=== PATIENT | female | born 1985 | race Caucasian/White ===

== ENCOUNTER 2022-05-30 18:01 | Emergency (ER) | payer MEDICARE, MEDICAID, SELFPAY ==
[2022-05-30 18:10] VITALS: BP 103/70; PULSE 83; RESP 18; TEMP 36.7; O2SAT 98
--- NOTE | 2022-05-30 19:35 | ED.GENADULT ---
HPI - General Adult General Chief complaint: Unspecified Stated complaint: Seizures Source: patient Mode of arrival: ambulatory Limitations: no limitations History of Present Illness HPI narrative: PATIENT PRESENTS FOR EVALUATION WITH AN INCREASED NUMBER OF SEIZURES OF LATE. SHE HAS UNDERLYING EPILEPSY. SHE STATES SHE HAS HAD 3 SEIZURES IN THE PAST FEW DAYS. SHE IS COMPLIANT WITH HER ANTIEPILEPTICS. SHE BELIEVES THE INCREASE IN SEIZURES IS RELATED TO STRESS OR PERHAPS AN ACUTE ILLNESS. HER SON RECENTLY TESTED POSITIVE FOR STREP. SHE DENIES SORE THROAT. DENIES FEVER, CHILLS, OTALGIA OF, COUGH, OTHER INFECTIOUS SYMPTOMS. SHE HAS SOME CHRONIC URINARY SYMPTOMS BUT HAS UNDERLYING INTERSTITIAL CYSTITIS. SHE RECENTLY WENT TO REHAB AND HAS BEEN CLEAN FROM [facility]PIATES FOR ABOUT 86 DAYS. SHE HAS SOME PROBLEMS WITH TRANSPORTATION FINDING PERMANENT HOUSING. SHE ALSO HAS SOME STRESS IN HER INTIMATE RELATIONSHIP BUT STATES THAT SHE AND HER BOYFRIEND ARE CURRENTLY NOT SEEING ONE ANOTHER. Related Data Home Medications Medication Instructions Recorded Confirmed buprenorphine 8 mg-naloxone 2 mg film 05/30/22 sublingual film escitalopram oxalate 20 mg tablet mg 05/30/22 folic acid 1 mg tablet 05/30/22 gabapentin 300 mg capsule mg 05/30/22 lacosamide 150 mg tablet mg 05/30/22 lacosamide 50 mg tablet (Vimpat) 50 mg PO Q12H 05/30/22 05/30/22 levothyroxine 200 mcg tablet mcg 05/30/22 omega 2-rnf-xek-fish oil 300 cap 05/30/22 mg-1,000 mg capsule (Fish Oil) pantoprazole 40 mg tablet,delayed mg PO 05/30/22 release prazosin 1 mg capsule mg 05/30/22 Allergies Allergy/AdvReac Type Severity Reaction Status Date / Time lamotrigine [From Lamictal] Allergy Unknown Verified 05/30/22 19:05 tuberculin, purified protein Allergy Unknown Verified 05/30/22 19:06 deriva diphenhydramine AdvReac Seizure Verified 05/30/22 19:04 [From Benadryl] hydroxyzine AdvReac Seizure Verified 05/30/22 19:04 Review of Systems Review of Systems: CONSTITUTIONAL: DENIES FEVER, CHILLS, OR SWEATS. EYES: DENIES VISUAL CHANGES, REDNESS, OR DISCHARGE. ENT: DENIES RHINORRHEA, CONGESTION, SORE THROAT, OR OTALGIA. CARDIOVASCULAR: DENIES CHEST PAIN, PALPITATIONS, OR EDEMA. RESPIRATORY: DENIES COUGH OR DYSPNEA. GASTROINTESTINAL: DENIES ABDOMINAL PAIN, NAUSEA, VOMITING, OR DIARRHEA. GENITOURINARY: DENIES DYSURIA OR HEMATURIA. SKIN: DENIES RASH OR ITCHING. MUSCULOSKELETAL: DENIES BACK PAIN, JOINT PAIN, OR MYALGIA. NEUROLOGIC: REPORTS RECENT SEIZURE ACTIVITY. dENIES HEADACHE, NUMBNESS, DIZZINESS, OR WEAKNESS. PSYCHIATRIC: REPORTS INCREASE IN STRESS AND ANXIETY. PMFSH Past Medical History Medical History Bipolar disorder Opiate abuse, continuous Seizure disorder Surgical History Surgical History No pertinent past surgical history Family History Family History Mother Family history non-contributory Social History Social History Substance use: former Substance use type: opiates Living arrangements: with family Gender identity (if verbalized by the patient): Female Sexual Orientation (if Verbalized by the Patient): Straight or Heterosexual Exam Narrative: GENERAL: WELL-APPEARING, WELL-NOURISHED, AND IN NO ACUTE DISTRESS. HEAD: NORMOCEPHALIC, ATRAUMATIC. EYES: PERRLA AND EOMI. ENT: NARES CLEAR, NO RHINORRHEA OR EPISTAXIS. MUCOUS MEMBRANES MOIST. OROPHARYNX WITHOUT TONSILLAR HYPERTROPHY EXUDATE OR OTHER LESIONS. BILATERAL TMS PEARLY VEGA NONBULGING NECK: SUPPLE. NO ADENOPATHY OR MASSES. NO CAROTID BRUITS OR JVD CHEST: CLEAR TO AUSCULTATION. NO RESPIRATORY DISTRESS. NO WHEEZES RALES OR RHONCHI HEART: REGULAR RATE AND RHYTHM. NO MURMUR HEARD. NORMAL PERIPHERAL PULSES. ABDOMEN: SOFT, NONTEN
== END 2022-05-30 19:35 | disposition home or self-care (01) ==
PROVIDERS: Emergency Provider Nurse Practitioner; PCP Nurse Practitioner Family
DX: G40.909 Epilepsy, unspecified, not intractable, without status epilepticus (principal); Z20.822 Contact with and (suspected) exposure to COVID-19
CPT/HCPCS: 81003; 87081; 87426; 87804; 87880; 99213; C9803; G0463

== ENCOUNTER 2025-02-18 10:14 | Outpatient (CLI) | payer MEDICARE, MEDICAID, SELFPAY ==
[2025-02-18 10:48] LABS: Hematocrit 35.2 % (37.0-47.0); Hemoglobin 11.8 g/dL (12.0-15.0); Immature Granulocyte Percent A 0.3 % (0-0.5); Lymphocytes Absolute Auto 1.32 K/mm3 (0.9-3.2); Mean Corpuscular HGB Conc 33.5 g/dl (32-36); Mean Corpuscular Hemoglobin 30.5 pg (26-34); Mean Corpuscular Volume 91.0 fl (80-100); Nucleated Red Blood Cells Absolute Auto 0.000 K/mm3 (0.0-0.012); Nucleated Red Blood Cells Perc 0.0 % (0.0-0.2); Platelet Count Result 265 k/mm3 (150-375); Red Blood Count 3.87 M/mm3 (4.2-5.4); White Blood Count 6.3 K/mm3 (4.5-10.0)
[2025-02-18 11:08] LABS: Iron 67 ug/dL (37-170)
[2025-02-18 11:09] LABS: Alanine Aminotransferase 34 U/L (6-35); Albumin Level 4.4 g/dL (3.5-5.1); Alkaline Phosphatase 59 U/L (38-126); Anion Gap 9 mmol/L (4-12); Aspartate Amino Transferase 44 U/L (14-36); Bilirubin,Total 0.5 mg/dL (0.2-1.3); Blood Urea Nitrogen 17 mg/dL (7-17); Calcium 8.9 mg/dL (8.4-10.2); Carbon Dioxide 25 mmol/L (22-30); Chloride 105 mmol/L (98-107); Cholesterol 218 mg/dL (0-200); Estimated Glomerular Filt Rate > 60; Glucose 89 mg/dL (65-110); HDL Direct 61 mg/dL; Potassium 4.2 mmol/L (3.4-5.0); Sodium 139 mmol/L (137-145); Total Protein 7.4 g/dL (6.3-8.2); Triglycerides 74 mg/dL (<150)
[2025-02-18 11:17] LABS: Percent Iron Saturation 17 % (20-50)
[2025-02-18 11:45] LABS: Thyroid Stimulating Hormone Reflex 2.680 uIU/mL (0.465-4.68)
--- OUTSIDE RECORDS SUMMARY | 2025-02-18 11:59 | XMS_ITS | Clinical Summary ---
Author Organization [facility] Care Team Providers Care Client Care Manager Name Role Phone Rosas, Bailee Lyons CHIEF OPERATOR REFORMER Unavailable [phone] No, Physician Primary Care Provider [phone] Allergies Active Allergy Reactions Criticality Noted Date Comments Lactose Diarrhea,Nausea Only,Other (See comments),Nausea & Vomiting Low 03/31/2015 gas gas Lamotrigine Rash Medium 05/21/2019 Mycobacterium Tuberculosis (Tuberculin Ppd) Seizures High 06/20/2023 Sulfamethoxazole-Trimeth oprim Other (See comments) Low 12/01/2016 Patient states it causes seizures. Tetanus-Diphtheria Toxoids-Td Other (See comments) Low 05/21/2019 Chest tightness Medications levothyroxine (SYNTHROID) 200 mcg tablet Take 1 tablet (200 mcg total) by mouth daily 05/11/19 18 Active NON FORMULARY, FOR CLINIC ADMINISTERED MEDICATIONS ONLY, (not in database) kelp Active cholecalciferol (VITAMIN D-3) 5,000 unit capsule Take 1 capsule (5,000 Units total) by mouth daily Active ascorbic acid (VITAMIN C) 1,000 mg tablet Take 1 tablet (1,000 mg total) by mouth daily Active folic acid (FOLVITE) 1 mg tabletIndication s:Folate Deficiency Take 1 tablet (1 mg total) by mouth daily 100 tablet 03/09/19 23 Active thiamine (VITAMIN B1) 100 mg tabletIndication s:Thiamine Deficiency Take 1 tablet (100 mg total) by mouth daily 100 tablet 03/09/19 23 Active buprenorphine-na loxone (SUBOXONE) 2-0.5 mg per SL tablet Place 1 tablet under the tongue daily 4 tablet 03/08/19 23 Active escitalopram (LEXAPRO) 20 mg tablet Take 1 tablet (20 mg total) by mouth daily 30 tablet 03/08/19 23 Active carBAMazepine ER (CARBATROL) 300 mg 12 hr capsule Take 1 capsule (300 mg total) by mouth 2 (two) times a day 60 capsule 03/08/19 23 Active gabapentin (NEURONTIN) 300 mg capsule Take 1 capsule (300 mg total) by mouth 5 (five) times a day (with meals, nightly, and 2 AM) 150 capsule 03/08/19 23 Active al & mag hydroxide with simethicone-diph enhydramine-lido carol (MAGIC MOUTHWASH) suspension 1-5-7Epjlethmdpx :Acute glossitis,Sensat ion of foreign body in throat Swish and swallow 15 mL every 4 (four) hours as needed (Swish around in mouth and gargle with solution for 5 minutes then swallow.) Collaborating physician Abel Stevenson MD 240 mL 06/11/19 24 Active hydrOXYzine (ATARAX) 25 mg tablet Take 1 tablet (25 mg total) by mouth 3 (three) times a day as needed for itching Active ARIPiprazole (ABILIFY) 30 mg tablet Take 1 tablet (30 mg total) by mouth daily Active zonisamide (ZONEGRAN) 100 mg capsuleIndicatio ns:Seizure disorder, complex partial (HCC) Take 2 capsules (200 mg total) by mouth daily 60 capsule 3 02/09/20 25 Active lacosamide (VIMPAT) 200 mg tablet TAKE 1 TABLET BY MOUTH TWICE A DAY FOR 30 DAYS 60 tablet 3 02/09/20 25 Active lacosamide (VIMPAT) 150 mg tablet Take 1 tablet (150 mg total) by mouth 2 (two) times a day 60 tablet 03/08/19 23 025 Discontin ued(Alter emmie therapy) zonisamide (ZONEGRAN) 100 mg capsuleIndicatio ns:Seizure disorder, complex partial (HCC) Take 2 capsules (200 mg total) by mouth daily 60 capsule 3 12/11/19 25 025 Discontin ued(Reord er) Active Problems Problem Noted Date Diagnosed Date Memory loss 08/02/2024 Acute glossitis 06/11/2023 Sensation of foreign body in throat 06/11/2023 Opioid dependence with intoxication with complic ation 03/04/2022 Complex partial seizure 01/27/2016 Resolved Problems Problem Noted Date Diagnosed Date Resolved Date Seizure 01/23/2014 08/02/2024 Overview (06/03/2016): Seizure Encounters Date Type Department Care Team Description 02/08/2025 Orders Only [facility] [address] [place] [address] [address] [place] [address] Judah Ferris MD 01/28/2025 Telephone [facility] [address] [place] [address] [address] [place] [address] Sarah Batista MA 01/15/2025 Telephone [facility] [address] [place] [address] [address] [place] [id number] Judah Ferris MD from Last 3 Months Medical History Medical History Date Comments Epilepsy (HCC) Epilepsy Seizure disorder (HCC) Seizure d isorder Tension headache Headache, tensi on Bipolar affective disorder, current episode manic (HCC) Bipolar affective - now shu c; Comments: [facility] 01/28/2014 - Social History Tobacco Use Types Packs/Day Years Used Date Smoking Tobacco: Every Day Smokeless Tobacco: Never Alcohol Use Standard Drinks/Week Comments No 0 (1 standard drink = 0.6 oz pur e alcohol) AUDIT-C Answer Date Recorded Q1: How often do you have a drink containing alcohol? Never 03/04/2022 Q2: How many drinks containi ng alcohol do you have on a typical day when you are drinking? Patient does not drink Q3: How often do you have si x or more drinks on one occasion? Never 03/04/2022 Personal Safety Answer Date Recorded Have you ever been in or are you currently in a harmful physical or emotional relationship or is someone making you feel afraid or unsafe? Denies 06/14/2023 Comments No Sex and Gender Information Value Date Recorded Sex Assigned at Not on file Legal Sex Female 9:51 AM [employer] SCHO[employer] CUSTODIAN Gender Identity Not on file Sexual Orientation Not on file Last Filed Vital Signs Vital Sign Reading Time Taken Comments Blood Pressure 109/73 08/02/2024 10:11 AM CDT Pulse 99 08/02/2024 10:11 AM CDT Temperature 36.7 C (98 F) 06/20/2023 9:06 AM CDT Respiratory Rate 18 08/02/2024 10:11 AM CDT Oxygen Saturation 97% 08/02/2024 10:11 AM CDT Inhaled Oxygen Concentration - - Weight 92.1 kg (203 lb 0.7 oz) 09/15/2024 10:01 AM CDT Height 160 cm (5' 2.99) 09/15/2024 10:01 AM CDT Body Mass Index 35.98 09/15/2024 10:01 AM CDT Plan of Treatment Health Maintenance Due Date Last Done Comments Breast Cancer Screening-Mammogram 1984 Cervical Cancer Screening 1984 Depression Screening 1984 Hepatitis C Screening 1984 Varicella Vaccines (1 of 2 - 13+ 2-dose series) 1997 Regular Well Visit/Exam 18-64 2002 Pneumococcal vaccine <65 (1 of 2 - PCV) 08/08/2003 HPV Vaccines (1 - 3-dose SCD M series) 08/08/2011 Covid-19 Vaccine (4 - 2024-2 6 season) 2024 03/08/2021, 09/29/2020, 09/08/2020 Influenza Vaccine (#1) 2024 9, 01/24/2018, 11/25/2015, Additional history exists DTaP/Tdap/Td Vaccine (2 - Td or Tdap) 07/07/2025 07/08/2015 Hepatitis B Screening Completed 06/20/1996 Insurance MEDICARE IDPA , [place] [address] IDPA [facility] MEDIC[employer] ADVANTAGE MEDICARE IDPA MEDICARE IDPA Advance Directives For more information, please contact: [phone] * Full Code (Latest Code Status on File) Date Activated Date Inactivated Comments 03/04/2022 4:31 PM 03/08/2022 5:22 PM Care Teams Client Care Manager Relationship Specialty Start Date End Date No, Physician PCP - General 02/07/25 Bailee Rosas NP [address] [place] [id number] 02/05/20
--- OUTSIDE RECORDS SUMMARY | 2025-02-18 11:59 | XMS_ITS | Encounter Summary ---
Author Organization [facility] Address [address] [place] [address] Phone Care Team Providers Care Heavy Equipment Field Mechanic Name Role Phone Dick Zarate MD Unavailable [phone] Robe Schafer MD Primary Care Provider + Encounter Details Date Type Department Care Team (Late st Contact Info) Description 09/21/2023 Telephone [facility] [address] [place] [address] Elo Cat MD [address] [place] [address] Social History Tobacco Use Types Packs/Day Years Used Date Smoking Tobacco: Former Cigarettes 0.5 Q uit: 06/27/2021 Smokeless Tobacco: Never Alcohol Use Standard Drinks/Week Comments No 0 (1 standard drink = 0.6 oz pur e alcohol) quit drinking [facility] Utilities Answer Date Recorded In the past 12 months has [employer] electric, gas, oil, or water company threatened to shut off services in your home? Patient declined 09/20/2023 Social Connection and Isolation Panel Answer Date Recorded In a typical week, how many times do you talk on the phone with family, friends, or neighbors? Patient declined 09/20/2023 How often do you get togethe r with friends or relatives? Patient declined 09/20/2023 How often do you attend baptist or zoroastrian serv ices? Patient declined 09/20/2023 Do you belong to any clubs o r organizations such as baptist groups, unions, fraternal or athletic groups, or school groups? Patient declined 09/20/2023 How often do you attend meet ings of the clubs or organizations you belong to? Patient declined 09/20/2023 Are you , , di vorced, , never , or living with a partner? Patient declined 09/20/2023 AUDIT-C Answer Date Recorded Q1: How often do you have a drink containing alc ohol? Patient declined 09/20/2023 Q2: How many drinks containi ng alcohol do you have on a typical day when you are drinking? Patient declined 09/20/2023 Q3: How often do you have si x or more drinks on one occasion? Patient declined 09/20/2023 Overall Financial Resource Strain (CARDIA) Answe r Date Recorded How hard is it for you to pa y for the very basics like food, housing, medical care, and heating? Patient declined 09/20/2023 [facility] - Occupational Stress Questionnaire Answer Date Recorded Do you feel stress - tense, restless, nervous, or anxious, or unable to sleep at night because your mind is troubled all the time - these days? Patient declined 09/20/2023 Exercise Vital Sign Answer Date Recorde d On average, how many days pe r week do you engage in moderate to strenuous exercise (like a brisk walk)? Patient declined On average, how many minutes do you engage in exercise at this level? Patient declined 09/20/2023 Hunger Vital Sign Answer Date Recorded Within the past 12 months, y ou worried that your food would run out before you got the money to buy more. Patient declined Within the past 12 months, t he food you bought just didn't last and you didn't have money to get more. Patient declined PRAPARE - Transportation Answer Date Re corded In the past 12 months, has l ack of transportation kept you from medical appointments or from getting medications? Patient declined 09/20/2023 In the past 12 months, has l ack of transportation kept you from meetings, work, or from getting things needed for daily living? Patient declined 09/20/2023 Housing Stability Vital Sign Answer New e Recorded In the last 12 months, was t here a time when you were not able to pay the mortgage or rent on time? Patient declined 09/20/19 24 In the past 12 months, how m any times have you moved where you were living? 8 09/20/2023 At any time in the past 12 m [facility], were you homeless or living in a mcc (including now)? Patient declined 09/20/2023 Sexually Active Control Partners Comments Yes Surgical Male Comments No Sex and Gender Information Value Date Recorded Sex Assigned at Female 06/08/2023 7:14 PM CDT Legal Sex Female 10:39 PM CDT Gender Identity Female 06/08/2023 7:14 PM CDT Sexual Orientation Something else 08/23/2023 11 :01 AM CDT documented as of this encounter Functional Status documented as of this encounter Mental Status * Question Answer Entry Date Author Safety Factors bed in low position; call light in reach;ID band on;upper side rails raised x 2;wheels locked 09/21/2023 9:53 AM CDT Capri Sweeney, RN * Question Answer Entry Date Author Pain Description constant;aching;sharp 1:00 PM CDT Capri Sweeney, customs inspector Interventions care clustered;pain management plan reviewed with patient/caregiver 09/21/2023 1:00 PM CDT Capri Sweeney, RN * Question Answer Entry Date Author VTE Prevention/Management ambulation encouraged 09/21/2023 9:53 AM CDT Capri Sweeney, RN * Question Answer Entry Date Author BP 128/73 09/21/2023 11:54 AM CDT Beronica Fitzpatrick Temp 97.9 09/21/2023 11:54 AM CDT Beronica Fitzpatrick Pulse 88 09/21/2023 11:54 AM CDT Beronica Fitzpatrick * Question Answer Entry Date Author SpO2 100 09/21/2023 11:54 AM CDT Beronica Fitzpatrick O2 Device None (Room air) 09/21/2023 9:53 AM CDT Capri Mcdonald, RN * Question Answer Entry Date Author Best Eye Response 4-->(E4) spontaneous 9:53 AM CDT Capri Sweeney RN Best Verbal Response 5-->(V5) oriented 9:53 AM HELENT Capri Sweeney RN Best Motor Response 6-->(M6) obeys commands 08/29 9:53 AM Capri Burns RN Dylan Coma Scale Score 15 09/21/2023 9:53 AM CDT Capri Sweeney RN * Question Answer Entry Date Author Sensory Perception 4-->no impairment 09/21/2023 9:53 AM HELENT Capri Sweeney RN Friction and Shear 3-->no apparent problem 09/20 9:53 AM HELENT Capri Sweeney RN Moisture 4-->rarely moist 09/21/2023 9:53 AM Capri Burns RN Hi Score 22 09/21/2023 9:53 AM HELENT Capri Sweeney RN Nutrition 3-->adequate 09/21/2023 9:53 AM Capri Burns RN Activity 4-->walks frequently 09/21/2023 9:53 AM Capri Burns RN Mobility 4-->no limitation 09/21/2023 9:5 3 AM Capri Burns RN * Question Answer Entry Date Author Infection Management aseptic techniques maintained 09/21/2023 9:53 AM Capri Burns RN documented in this encounter Plan of Treatment Not on file documented as of this encounter Visit Diagnoses Diagnosis S/P cholecystectomy- Primary Other acquired absence of organ documented in this encounter Care Teams Heavy Equipment Field Mechanic Relationship Specialty Start Date End Date Robe Schafer MD [address] [facility] [address] [place] [id number] PCP - General Family Medicine 03/22/23 Dick Zarate MD Consulting Physician Neurology 03/17/15 01/15/24 documented as of this encounter
--- OUTSIDE RECORDS SUMMARY | 2025-02-18 11:59 | XMS_ITS | Patient Health Record ---
Author Organization [facility] [employer] [facility] Address [address] [facility] [address] [place] [address] Care Team Providers Care Research Archaeologist Name Role Phone Thomas Gallardo Unavailable [phone] Reason For Referral No Information Social History Sex Assigned At : Social History Observation Description Sex Assigned At Female Encounters Encounter Location Date Provider Diagnosis [facility] [employer] [facility] [address] [facility] [address] [place] [address] 08/21/2024 Thomas Gallardo Plan Of Treatment No Information Insurance Providers Payer Name Payer Address Payer Phone Subscriber Number Group Number Insured Name Patient Relationship to Insured Coverage Start Date Coverage End Date Medicare-I l Medicare [address] [place] [id number] Felisa Reed Self - patient is the insured
--- OUTSIDE RECORDS SUMMARY | 2025-02-18 11:59 | XMS_ITS | Clinical Summary ---
Author Organization [facility] Address [address] [facility] [place] [address] Phone Care Team Providers Care Director Nurses' Registry Name Role Phone Robe Schafer MD Primary Care Provider + Allergies Active Allergy Reactions Criticality Noted Date Comments Sulfamethoxazole-Trime thoprim Other (see Comments) 05/05/2017 Patient states it causes seizures. Lactose Diarrhea,Nausea,Othe r (see Comments) 03/31/2015 gas Lamotrigine Rash 05/21/2019 Tetanus-Diphtheria Toxoids Td Other (see Comments) 05/21/2019 Chest tightness Medications escitalopram (LEXAPRO) 20 MG Tablet 20 mg every morning. 0 03/07/19 16 Active carBAMazepine (CARBATROL) 300 MG CAPSULE SR 12 HR TAKE ONE CAPSULE BY MOUTH EVERY 12 HOURS 60 Cap 3 11/16/19 17 Active Additional Information Patient taking differently: 300 mg Oral 2 TIMES DAILY, Indications: Bipolar Mood Disorder, Reported on 09/20/2023 cholecalciferol 400 UNIT TabletIndications:V itamin D Deficiency Take 10,000 Units by mouth twice a week. Indications: Vitamin D Deficiency Active LORazepam (Ativan) 0.5 MG TabletIndications:A nxiety,History of seizures Take 1 Tablet by mouth daily as needed for Anxiety. 5 Tablet 11/10/19 23 Active prochlorperazine (COMPAZINE) 5 MG Tablet Take 2 Tablets by mouth every 6 hours as needed for Nausea - 1st line. 15 Tablet 09/18/19 24 Active other 4 Capsules by Other route in the morning and at bedtime. Kratom Active Aripiprazole (ABILIFY) 20 MG Tablet Take 20 mg by mouth daily. Active buprenorphine-nalox one (Suboxone) 8-2 MG FILM by Sublingual route 2 times daily. 1.5 films AM and 1 film PM Active gabapentin (NEURONTIN) 400 MG Capsule Take 400 mg by mouth 4 times daily. Active levothyroxine (SYNTHROID) 125 MCG Tablet Take 250 mcg by mouth daily. Active lacosamide (VIMPAT) 200 MG Tablet Take 200 mg by mouth 2 times daily. Active ondansetron (ZOFRAN-ODT) 4 MG TABLET DISPERSIBLE Take 1 Tablet by mouth every 6 hours as needed for Nausea - 1st line. 30 Tablet 09/21/19 24 Active HYDROcodone-acetami nophen (NORCO) 5-325 MG TabletIndications:S /P cholecystectomy Take 1 Tablet by mouth every 8 hours as needed for Moderate or more severe pain. 15 Tablet 09/21/19 24 Active Active Problems Problem Noted Date Diagnosed Date Complex partial seizure 01/27/2016 Non morbid obesity 08/11/2015 Numbness and tingling 05/07/2015 Seizures 03/31/2015 Bipolar 1 disorder 03/31/2015 Resolved Problems Problem Noted Date Diagnosed Date Resolved Date Acute cholecystitis 09/20/2023 09/21/19 Hypokalemia 09/20/2023 09/21/2023 Family History Medical History Relation Name Comments No Known Problems Brother No Known Problems Daughter Alcohol Abuse Father Colon Polyps Father Heart Disease Father No Known Problems Maternal Grandfather Emphysema Maternal Grandmother Bipolar Disorder Mother Depression Mother Hepatitis Mother Suicide Attempts Mother Colon Cancer Paternal Aunt No Known Problems Paternal Grandfather No Known Problems Paternal Grandmother Seizures Son 1 No Known Problems Son 2 Relation Name Status Comments Brother Alive Daughter Alive Father Alive Maternal Grandfather Maternal Grandmother Mother Paternal Aunt Paternal Grandfather Paternal Grandmother Alive Son 1 Alive Son 2 Alive Social History Tobacco Use Types Packs/Day Years Used Date Smoking Tobacco: Former Cigarettes 0.5 Q uit: 06/27/2021 Smokeless Tobacco: Never Alcohol Use Standard Drinks/Week Comments No 0 (1 standard drink = 0.6 oz pur e alcohol) quit drinking [facility] Utilities Answer Date Recorded In the past 12 months has e electric, gas, oil, or water company threatened [...] declined 09/20/2023 How often do you attend yazdanism or jewish serv ices? Patient declined 09/20/2023 Do you belong to any clubs o r organizations such as yazdanism groups, unions, fraternal or athletic groups, or [...] medical care, and heating? Patient declined 09/20/2023 [facility] - Occupational Stress Questionnaire Answer Date Recorded [...] any time in the past [address] [facility], were you homeless or living in a custodial (including now)? Patient declined 09/20/2023 Sexually Active Control Partners Comments Yes Surgical Male Comments No Sex and Gender Information Value Date Recorded Sex Assigned at Female 06/08/2023 7:14 PM CDT Legal Sex Female 10:39 PM CDT Gender Identity Female 06/08/2023 7:14 PM CDT Sexual Orientation Something else 08/23/2023 11 :01 AM CDT Last Filed Vital Signs Vital Sign Reading Time Taken Comments Blood Pressure 128/73 09/21/2023 11:54 AM CDT Pulse 88 09/21/2023 11:54 AM CDT Temperature 36.6 C (97.9 F) 09/21/2023 11:54 AM CDT Respiratory Rate 16 09/21/2023 11:54 AM CDT Oxygen Saturation 100% 09/21/2023 11:54 AM CDT Inhaled Oxygen Concentration - - Weight 82.7 kg (182 lb 6.4 oz) 09/20/2023 1:14 A M CDT Height 160 cm (5' 3) 09/20/2023 1:14 AM CDT Body Mass Index 32.31 09/20/2023 1:14 AM CDT Plan of Treatment Health Maintenance Due Date Last Done Comments Hepatitis C Virus (HCV) Screening 1984 Mammogram 1984 Hepatitis B Immunization (2 of 3 - 3-dose series) 07/18/1996 06/20/1996 Varicella Immunization (1 of 2 - 13+ 2-dose series) 1997 Pap Smear 2005 Medicare Initial AWV [id number] 12/29/2013 Cervical Cancer Screening (CCS) 2014 HPV/Cotest 2014 Discussion re Starting/Frequency of Mammograms 2024 Influenza Immunization (#1) 10/29/202411/29, 01/24/2018, 11/25/2015, Additional history exists SARS-COV-2 Immunization ( season) 2024 03/08/2021, 09/29/2020, 09/08/2020 Respiratory Syncytial Virus (RSV) Immunization (Adult) (1 - 1-dose 75+ series) 08/08/2059 DTaP/Tdap/Td Immunization Discontinued 07/08/2015 TdaP Immunization Completed 07/08/2015 Human Papillomavirus (HPV) Immunization (No Doses Required) Completed Meningococcal Immunization (ACWY) Aged Out No longer eligible based on patient's age to complete this topic Pneumococcal Immunization Combined Aged Out No longer eligible based on patient's age to complete this topic Rotavirus Immunization Aged Out No lo nger eligible based on patient's age to complete this topic Insurance MEDICARE [place]ICAID [place] Advance Directives * Full Code (Latest Code Status on File) Date Activated Date Inactivated Comments 09/20/2023 1:24 AM 09/21/2023 5:36 PM CPR-Full Deric atment: FULL ARREST: Attempt Resuscitation/CPR wit intubation and mechanical ventilation. PRE-ARREST: Use entire range of life support measures to stabilize the patient. Care Teams Director Nurses' Registry Relationship Specialty Start Date End Date Robe Schafer MD [address] [place] [address] [address] PCP - General Family Medicine 03/22/23
--- OUTSIDE RECORDS SUMMARY | 2025-02-18 11:59 | XMS_ITS | Clinical Summary ---
Author Organization [facility] Address [address] [place] [address] Care Team Providers Care Auth Specialist Name Role Phone Alison, Bailee JAIL OFFICER-STEREO OPERATOR Primary Care Provider [phone] Source Comments [facility],non-owned Affiliates and Associated Physician Practices is amultiple site organization consisting of ambulatory clinics and hospital sitesin [place], [place], [place] and [place]. This disclosure is being madepursuant to the Care Everywhere program and may not contain all information available regarding this patient. Last updated 17.[facility] Allergies Active Allergy Reactions Criticality Noted Date Comments Lactose Diarrhea,GI Discomfort,Other Low 03/31/2015 gas Lamotrigine Rash Medium 05/21/2019 Tetanus-Diphtheria Toxoids Td Other 05/21/2019 Chest tightness Medications * Be aware that medications may not be up to date on this document. Alwaysverify current medications with the patient. Cholecalciferol (VITAMIN D3) 400 UNITS tablet Take 12.5 (twelve and one-half) tablets by mouth once daily Active ibuprofen (MOTRIN) 200 MG tablet Take 1 (one) tablet by mouth every 6 hours as needed for Pain Active escitalopram (LEXAPRO) 20 MG tablet Take 1 (one) tablet by mouth once daily Active vitamin C (ASCORBIC ACID) 1000 MG tablet Take 1 (one) tablet by mouth once daily Active levothyroxine (SYNTHROID) 200 MCG tablet 1 Active [place]-3 Fatty Acids (fish oil) 1000 MG capsule Active folic acid (Folvite) 1 MG tablet Take 1 (one) tablet by mouth once daily Active Other Ashwaganda Active LYSINE PO Active 5-Hydroxytrypto manuel (5-HTP) 50 MG TABS Active gabapentin (Neurontin) 300 MG capsule Take 1 (one) capsule by mouth 4 times daily 360 capsule 3 3 Active carBAMazepine ER 12hr (Carbatrol) 300 MG capsule TAKE 1 CAPSULE BY MOUTH EVERY 12 HOURS 180 capsule 1 4 Active gabapentin (Neurontin) 400 MG capsule Take 1 (one) capsule by mouth 4 times daily 360 capsule 4 Active lacosamide (Vimpat) 200 MG tablet Take 1 (one) tablet by mouth 2 times daily 180 tablet 4 Active Active Problems Problem Noted Date Diagnosed Date ERRONEOUS ENCOUNTER--DISREGARD 07/08/2020 Immunizations Immunization Administration Dates Next Due INFLUENZA VACCINE, QUADR. (F LUZONE; FLULAVAL; FLUARIX; AFLURIA QUADRIVALENT; 6MO+), 0.5 ML (IIV4) 11/25/2015 Family History Medical History Relation Name Comments Alcohol abuse Father Cancer Maternal Aunt Alcohol abuse Mother Bipolar Disorder Mother Drug Abuse Mother Migraine Mother Relation Name Status Comments Father Maternal Aunt Mother Social History Tobacco Use Types Packs/Day Years Used Date Smoking Tobacco: Former Cigarettes 0 Q uit: 01/08/2020 Smokeless Tobacco: Never Tobacco Cessation:Counseling Given: Not Answered Alcohol Use Standard Drinks/Week Comments No 0 (1 standard drink = 0.6 oz pur e alcohol) Comments No Sex and Gender Information Value Date Recorded Sex Assigned at Not on file Legal Sex Female 6:28 AM TERADATA SOLUTION ARCHITECT Gender Identity Not on file Sexual Orientation Not on file Occupation Industry Job Start Date Job End Date DISABLED Not on file Not on file Not on file Last Filed Vital Signs Vital Sign Reading Time Taken Comments Blood Pressure 124/84 02/16/2021 11:17 AM TERADATA SOLUTION ARCHITECT Pulse 82 02/16/2021 11:17 AM TERADATA SOLUTION ARCHITECT Temperature 37.2 C (99 F) 09/19/2018 6:21 PM CDT Respiratory Rate 14 02/16/2021 11:17 AM TERADATA SOLUTION ARCHITECT Oxygen Saturation 97% 02/16/2021 11:17 AM TERADATA SOLUTION ARCHITECT Inhaled Oxygen Concentration - - Weight 75.3 kg (166 lb) 06/30/2022 1:47 PM CDT Height 160 cm (5' 3) 06/30/2022 1:47 PM CDT Body Mass Index 29.41 06/30/2022 1:47 PM CDT Plan of Treatment Health Maintenance Due Date Last Done Comments LIPID TESTING 1984 MAMMOGRAM 1984 MEDICARE AWV 12 MONTHS 1984 HIV SCREENING 08/08/1999 HEPATITIS C SCREENING 08/03/2002 DTAP/TDAP/TD VACCINES (1 - Tdap) 08/08/2003 HEPATITIS B VACCINE (1 of 3 - 19+ 3-dose series) 08/08/2003 HPV VACCINE (1 - 3-dose SCDM series) 08/08/2011 PAP with HPV 2014 DEPRESSION SCREENING 02/29/2024 COVID-19 VACCINE (1 - 2024-2 6 season) 2024 INFLUENZA VACCINE (#1) 2024 11/25/2015 ZOSTER VACCINE (1 of 2) 2034 HIB VACCINE Aged Out No longer eligi ble based on patient's age to complete this topic MENINGOCOCCAL (Group B) VACC INE SHARED DECISION-MAKING Aged Out No longer eligibl e based on patient's age to complete this topic MENINGOCOCCAL GROUPS A/C/Y/W VACCINE Aged Out No longer eligible b ased on patient's age to complete this topic PNEUMOCOCCAL VACCINE Aged Out No long er eligible based on patient's age to complete this topic Insurance MEDICARE MEDICAID - [place] MEDICAID - OUT OF STATE Advance Directives Documents on File Type Date Recorded Patient Steel Heater Expl anation Adv Directive/Living Will/POA 12/01/2015 9:53 PM * Full Code (Latest Code Status on File) Date Activated Date Inactivated Comments 11/24/2015 4:18 PM 11/29/2015 3:00 PM Care Teams Auth Specialist Relationship Specialty Start Date End Date Bailee Rosas APRN-JULIEN [address] [place] [address] PCP - General 07/20/21
--- OUTSIDE RECORDS SUMMARY | 2025-02-18 11:59 | XMS_ITS | Patient Health Record ---
Author Organization [facility] Address [address] [place] [address] Care Team Providers Care Well Puller Head Name Role Phone Jaja Melara Primary Care Provider Allergies Allergen (clinical drug ingredient) Drug/Non Drug Allergy documented on EMR Reaction Allergy Type Onset Date Status lamotrigine LaMICtal hives Drug Allergy Activ e Tuberculin purified protein derivative (FN) Tuberculin Tests anaphylaxis Drug Allergy Active Reason For Referral No Information Medications Medication SIG (Take, Route, Frequency, Duration) Notes Start Date End Date Status hydrOXYzine HCl 25 MG Tablet 1 tablet as needed Orally three times daily Active Cephalexin 500 MG Capsule 1 capsule Orally three times daily; Duration: 5 days Not-Taking/PRN Folic Acid 400 MCG Tablet 1 tablet Orally Once a day Active Escitalopram Oxalate 20 MG Tablet 1 tablet Orally Once a day Active Lacosamide 150 MG Tablet 1 tablet Orally Twice a day; Duration: 30 days Active Suboxone 8-2 MG Film 1.5 film under the tongue and allow to dissolve Sublingual Once a day Active carBAMazepine ER 300 MG Capsule Extended Release 12 Hour 1 capsule Orally Twice a day Active Gabapentin 600 MG Tablet 1 tablet Orally at bedtime; Duration: 30 days Active Gabapentin 300 MG Capsule 1 capsule Orally three times daily; Duration: 30 days Active Fish Oil + D3 7461-4980 MG-UNIT Capsule TAKE 1 CAPSULE BY MOUTH EVERY DAY; Duration: 30 Active Levothyroxine Sodium 200 MCG Tablet 1 tablet in the morning on an empty stomach Orally Once a day Active Immunizations Vaccine Route Administration Date Status Comme nts TDAP VACCINE >7 IM Unknown 07/08/2015 Administered PNEUMOCOCCAL VACC 13 BRANDT IM Unknown 05/06/2022 Refused Pfizer COVID-19 Unknown 09/08/2020 Administered Pfizer COVID-19 Unknown 09/29/2020 Administered Pfizer COVID-19 Unknown 03/08/2021 Administered HEPB VACC PED/ADOL 3 DOSE IM Unknown 06/20/1996 Adminis tered FLU VAC NO PRSV 4 BRANDT >6 MO Unknown 05/06/2022 Refused Social History Tobacco Use: Social History Observation Description Date Details (start date - stop date) Current Smoker NA - NA Social History Sexual History: Social Info Question Answer Notes Details of Sexual History Are you sexually active? No Are you having any sexual problems? No Have you had any sexually transmitted diseases ( STDs)? No Sexual Abuse History: none Sexual History Had sex in the past 12 months (vaginal, oral, or anal)? No Have you ever had a Sexually transmitted disease ? 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 Yes Communication needs (hearing, visual or cognitiv e): No Good ability to interact with other people: Yes Insecurities in? (list all that apply) None Advanced Care Planning Date 05/06/2022 Reviewed/Updated 05/06/2022 Drugs/Alcohol: Social Info Question Answer Notes Alcohol Screen (Audit-C) Did you have a drink containing alcohol in the past year? No Points 0 Interpretation Negative Drugs Have you used drugs other than those for medical reasons in the past 12 months? Yes Heroin? Yes fentanyl Route? Intranasal How many months ago did you last use? 6-12 months Are you in a treatment program? Yes Name of program: use notes section gateway Type of program: Outpatient Have ever injected drugs? No Are you still using? No Caffeine Intake: none Tobacco Use: Social Info Question Answer Notes Are you a second hand smoker? Are you a second hand sm oker? No Tobacco Use/Smoking Are you a current smoker How often do you smoke cigarettes? every day How many cigarettes a day do you smoke? 6-10 Are you interested in quitting? Not ready to quit Tobacco use other than smoking: Are you an other tobac co user? Yes vape Problems Problem Type SNOMED Code ICD Code Onset Dates Problem Status W/U Status Risk Notes Problem Fibromyalgia (060314023) Fibromyalgia (M79.7) Active confirmed Problem Diane's thyroiditis (13436790) Diane's thyroiditis (E06.3) Active confirmed Problem Chronic fatigue syndrome (15468945) Chronic fatigue (R53.82) Active confirmed Problem Epilepsy (56143753) Nonintractable epilepsy without status epilepticus, unspecified epilepsy type (G40.909) Active confirmed Plan Of Treatment Pending Test Test Name Order Date BLOOD COUNT WITH DIFF * 04/23/2022 Insurance Providers Payer Name Payer Address Payer Phone Subscriber Number Group Number Insured Name Patient Relationship to Insured Coverage Start Date Coverage End Date Medicare NGS [address] [place], [place] [id number] [phone] [id number] Felisa Reed Self - patient is the insured 3
[2025-02-18 12:20] LABS: Vitamin B12 715.0 pg/mL (239-931)
[2025-02-19 09:08] LABS: FSH 6.6 mIU/mL (.)
== END 2025-02-18 10:15 | disposition home or self-care (01) ==
PROVIDERS: PCP Nurse Practitioner Family; Visit Provider Internal Medicine
DX: N92.6 Irregular menstruation, unspecified (principal); R53.83 Other fatigue; F11.99 Opioid use, unspecified with unspecified opioid-induced disorder; E78.00 Pure hypercholesterolemia, unspecified; E03.9 Hypothyroidism, unspecified
CPT/HCPCS: 36415; 80053; 80061; 82607; 82746; 83001; 83540; 83550; 84443; 85025